=== PATIENT | female | born 1960 | race Caucasian/White ===

== ENCOUNTER 2017-06-21 17:50 | Emergency (ER) | payer OTHER ==
--- NOTE | 2017-06-21 18:38 | ED ---
Wound/Laceration HPI - General Chief Complaint: Wound/Laceration Stated Complaint: laceration Time Seen by Provider: 06/21/17 17:59 Source: patient, RN notes reviewed Mode of arrival: wheelchair Limitations: no limitations - History of Present Illness Initial Comments: Patient is a 56-year-old female since emergency room for evaluation of fall injury. Patient [place] and tripped and fell landing on her right hip and running her left adams into a metal object. Patient states she is having pain on the lateral portion of her right upper leg. Patient also states she is having right second toe pain and swelling. Patient states that she has a laceration over her left adams. Patient states she is ALLERGIC to the Tdap Vaccine. Patient states she received the tetanus vaccine when she was 8 years old and had an ALLERGIC reaction. Patient states she is unsure what the reaction was. Patient denies taking blood thinners. Patient denies head trauma. Patient denies loss of consciousness, headache, dizziness. - Related Data Home Medications Medication Instructions Recorded Confirmed Chlorpheniramine Maleate 4 mg PO DAILY 06/21/17 06/21/17 [Chlor-Trimeton] Hydrochlorothiazide [Hydrodiuril] 25 mg PO DAILY 06/21/17 06/21/17 Losartan Potassium [Cozaar] 25 mg PO HS 06/21/17 06/21/17 Naproxen Sodium [Aleve] 440 mg PO DAILY 06/21/17 06/21/17 Simvastatin [Zocor] 10 mg PO HS 06/21/17 06/21/17 Previous Rx's Medication Instructions Recorded Ibuprofen [Motrin] 800 mg PO Q6HR PRN #20 tab 06/21/17 Allergies Allergy/AdvReac Type Severity Reaction Status Date / Time Penicillins Allergy Unknown Verified 06/21/17 18:13 tetanus and diphtheria Allergy Unknown Verified 06/21/17 18:13 toxoids Review of Systems ROS Statement: Those systems with pertinent positive or pertinent negative responses have been documented in the HPI. ROS Other: All systems not noted in ROS Statement are negative. Past Medical History Past Medical History: Hyperlipidemia, Hypertension Additional Past Medical History / Comment(s): Arthritis History of Any Multi-Drug Resistant Organisms: None Reported Past Surgical History: Hysterectomy Past Psychological History: No Psychological Hx Reported Smoking Status: Former smoker Past Alcohol Use History: Occasional Past Drug Use History: None Reported General Exam - General Exam Comments Initial Comments: Sitting in exam room, no distress. Limitations: no limitations General appearance: alert, in no apparent distress Head exam: Present: atraumatic, normocephalic, normal inspection Eye exam: Present: normal appearance ENT exam: Present: normal exam Neck exam: Present: normal inspection Respiratory exam: Present: normal lung sounds bilaterally. Absent: respiratory distress Cardiovascular Exam: Present: regular rate, normal rhythm, normal heart sounds Left Lower Leg exam: Present: full ROM, laceration (3 inch laceration over anterior adams). Absent: normal inspection, tenderness Ankle exam: Present: normal inspection Foot/Toe exam: Present: normal inspection Neurovascular tendon exam: Present: no vascular compromise. Absent: pulse deficit (2+ dorsal pedal and posterior tibial pulses), abnormal cap refill ( Capillary refill less than 2 seconds) Right Hip exam: Present: full ROM, tenderness (Tenderness on palpating over her anterior lateral portion of the hip/proximal femur. Hematoma/swelling noted over lateral proximal upper leg.) Lower Leg exam: Present: normal inspection Ankle exam: Present: normal inspection Foot/Toe exam: Present: tenderness (Tenderness and ecchymosis on the second digit) Neurovascular tendon exam: Present: no vascular compromise. Absent: pulse deficit (2+ dorsal pedal and posterior tibial pulses), abnormal cap refill ( Capillary refill less than 2 seconds) Back exam: Present: normal inspection Neurological exam: Present: alert, oriented X3, CN II-XII intact Psychiatric exam: Present: normal affect, normal mood Skin exam: Present: warm, dry. Absent: rash Course Vital Signs 06/21/17 06/21/17 18:05 20:20 Temperature 98 F Pulse Rate 91 101 H Respiratory 18 16 Rate Blood Pressure 151/96 122/81 O2 Sat by Pulse 97 94 L Oximetry Procedures - Laceration Laceration #1 Consent Obtained: verbal consent Indication: laceration Site: other (left adams) Size (cm): 6 Description: linear Depth: simple, single layer Anesthetic Used: lidocaine 1% Anesthesia Technique: local infiltration Amount (mls): 3 Pre-repair: wound explored, irrigated extensively Type of Sutures: nylon Size of Sutures: 5-0 Number of Sutures: 8 Technique: simple, interrupted Patient Tolerated Procedure: well, no complications Medical Decision Making - Medical Decision Making Patient is a 56-year-old female presents to the emergency room for evaluation of fall injury. Patient did sustain a laceration over left adams. Laceration repair with sutures. X-rays negative for any acute findings. Patient has ALLERGIC reaction to tdap Vaccine. Case discussed with Dr. Balderas. Dr. Balderas spoke with Dr. Bailey regarding what to do about tetanus. Dr. Bailey recommended to offer patient tetanus vaccine or tetanus immunoglobulin, and then to observe patient for a while. Patient refused both and wanted to be discharged. Term parameters discussed. - Radiology Data Radiology results: report reviewed, image reviewed Disposition Clinical Impression: Leg laceration, Fall, Hematoma of right hip Disposition: HOME SELF-CARE Condition: Good Instructions: Care For Your Stitches (ED), Laceration (ED), Hematoma (ED) Additional Instructions: Tylenol or Motrin as needed for pain. Rest, ice and elevate right leg. Clean suture area with a damp cloth. Please return in 7-10 days for suture removal. Please follow up with primary care provider in 1-2 days. If any new symptom arises or symptoms worsen, return to ER as soon as possible. Prescriptions: Ibuprofen [Motrin] 800 mg PO Q6HR PRN #20 tab PRN Reason: Pain Referrals: Abi Sinclair MD [Primary Care Provider] - 1-2 days Time of Disposition: 19:45
--- NOTE | 2017-06-21 18:49 | XR ---
Exam: Right femur complete. HISTORY: Swelling. Pain. TECHNIQUE: 5 views of the right femur were obtained. FINDINGS: There is no acute fracture or subluxation. There is no radiopaque foreign body. Soft tissue structure s demonstrates some soft tissue edema lateral to the proximal femur. This is likely the hematoma form ation. IMPRESSION: No acute osseous abnormality is identified.
--- NOTE | 2017-06-21 18:51 | XR ---
Exam: Right foot complete HISTORY: Bruising and swelling overlying the second toe. TECHNIQUE: 4 views the right foot were obtained. FINDINGS: No acute fracture or subluxation is identified. There is no radiopaque foreign body. There could be m inimal soft tissue swelling overlying the second toe. IMPRESSION: Mild soft tissue swelling is noted overlying the second toe.
--- NOTE | 2017-06-21 18:52 | XR ---
Exam: X-ray tibia and fibula left. TECHNIQUE: 6 views left tibia and fibula were obtained. COMPARISON: None FINDINGS: No acute fracture or subluxation is identified. Soft tissue structures appear unremarkable. There is no radiopaque foreign body. There is a slight cortical bump along the dorsal aspect of the mid fibula which is felt to be the insertion site of a muscle. IMPRESSION: No acute abnormality is identified.
--- NOTE | 2017-06-21 18:54 | XR ---
Exam: X-ray right hip complete. TECHNIQUE: 2 views the right hip were obtained. FINDINGS: No acute fracture subluxation is identified. Mild soft tissue swelling lateral to the proximal right femur is noted. No radiopaque foreign body is identified. IMPRESSION: No acute abnormality is identified.
[2017-06-21] MEDS ORDERED: ACET/COD 300 MG/30 MG STARTER PACK 6 TAB BTL PO STA (20:09)
[2017-06-21] MEDS ORDERED: IBUPROFEN 800 MG TAB PO STA (20:09)
[2017-06-21 20:21] VITALS: BP 122/81; PULSE 101; RESP 16; TEMP 98
== END 2017-06-21 20:27 | disposition home or self-care (01) ==
LOC: EC 17:50
DX: S81.812A Laceration without foreign body, left lower leg, initial encounter (principal); S70.01XA Contusion of right hip, initial encounter; S90.121A Contusion of right lesser toe(s) without damage to nail, initial encounter; E78.5 Hyperlipidemia, unspecified; I10 Essential (primary) hypertension; M19.90 Unspecified osteoarthritis, unspecified site; Z88.0 Allergy status to penicillin; Z88.7 Allergy status to serum and vaccine; Z79.1 Long term (current) use of non-steroidal anti-inflammatories (NSAID); Z79.899 Other long term (current) drug therapy; Z87.891 Personal history of nicotine dependence; W01.118A Fall on same level from slipping, tripping and stumbling with subsequent striking against other sharp object, initial encounter; Y93.01 Activity, walking, marching and hiking; Y92.89 Other specified places as the place of occurrence of the external cause
CPT/HCPCS: 12002; 73502; 99283